=== PATIENT | female | born 1960 | race Caucasian/White ===

== ENCOUNTER 2016-07-17 06:07 | Inpatient (IN) | payer BC ==
[2016-07-09 16:54] VITALS: BMI 26.5
[2016-07-17] MEDS ORDERED: THROMBIN (BOVINE) 5,000 UNIT VIAL TP ONE ×2 (07:14→11:41)
[2016-07-17] MEDS ORDERED: GELATIN, ABSORBABLE 100 EACH SPONGE TP ONE ×2 (07:14→11:41)
[2016-07-17] MEDS ORDERED: DESFLURANE GAS 240 ML BOTTLE IH ONE (07:57)
[2016-07-17] MEDS ORDERED: ePHEDrine SULFATE 50 MG/1 ML AMPULE ONE (08:00)
[2016-07-17] MEDS ORDERED: SUCCINYLCHOLINE CHLORIDE 200 MG/10 ML VIAL ONE (08:01)
[2016-07-17] MEDS ORDERED: MIDAZOLAM HCL 2 MG/2 ML SINGLE DOSE VIAL ONE (08:01)
[2016-07-17] MEDS ORDERED: PROPOFOL 20 ML ONE ×9 (08:01→12:02)
[2016-07-17] MEDS ORDERED: ROCURONIUM BROMIDE 50 MG/5 ML VIAL ONE ×2 (08:01)
[2016-07-17] MEDS ORDERED: HYDROmorphone HCL/PF 1 MG/ML VIAL (FOR PYXIS CHARGING ONLY) ONE ×2 (10:23→12:37)
[2016-07-17] MEDS ORDERED: VANCOMYCIN 1,000 MG VIAL (RESTRICTED TO ID ONLY) ONE (12:57)
[2016-07-17] MEDS ORDERED: BACITRACIN 30 GM TUBE TOPICAL OINTMENT ONE (13:08)
[2016-07-17] MEDS ORDERED: HYDROmorphone *PCA* 10MG/50ML DISP.SYRIN PCA ONE ×3 (13:12→15:10)
[2016-07-17] MEDS ORDERED: DEXAMETHASONE SOD PHOSPHATE 4 MG/1 ML VIAL IVPUSH PRN (14:14)
[2016-07-17] MEDS ORDERED: ONDANSETRON 4 MG/2 ML VIAL IVPUSH PRN ×2 (14:48)
[2016-07-17] MEDS ORDERED: PROMETHAZINE HCL 25 MG/1 ML VIAL IVPB PRN (14:49)
[2016-07-17] MEDS ORDERED: PROMETHAZINE HCL 25 MG/1 ML VIAL IVPUSH PRN (14:49)
[2016-07-17] MEDS: SODIUM CHLORIDE 0.45% 1,000 ML IV SCH (15:41)
[2016-07-17] MEDS: LACTATED RINGERS SOLUTION 1,000 ML IV SCH (15:42)
[2016-07-17] MEDS: HYDROmorphone *PCA* 10MG/50ML DISP.SYRIN PCA SCH (15:42)
[2016-07-17] MEDS: GABAPENTIN 100 MG CAPSULE (FP) PO SCH ×2 (16:37→21:21)
[2016-07-17] MEDS: CEFAZOLIN 1 GM/D5W 50 ML IVPB SCH (18:11)
[2016-07-17] MEDS: ATORVASTATIN CA 20 MG TABLET (FP) PO SCH (21:20)
[2016-07-17] MEDS: DOCUSATE SODIUM 100 MG CAPSULE (FP) PO SCH (21:20)
[2016-07-17] MEDS: DULoxetine HCL 30 MG CAPSULE.DR (FP) PO SCH (21:20)
[2016-07-17] MEDS ORDERED: NIACIN 1000 MG PO SCH (22:00)
[2016-07-17] MEDS ORDERED: PATIENT'S OWN MEDICATION (NON-FORMULARY) (Tizanidine Hcl [Tizanidine Hcl] 4 MG) PO SCH (22:00)
[2016-07-17] MEDS ORDERED: PATIENT'S OWN MEDICATION (NON-FORMULARY) (Simvastatin 40 MG) PO SCH (22:00)
[2016-07-17] MEDS ORDERED: PT OWN MED DRAWER 7, Y5N ONE (22:47)
[2016-07-18] MEDS: CEFAZOLIN 1 GM/D5W 50 ML IVPB SCH (01:41)
[2016-07-18] MEDS ORDERED: PT OWN MED DRAWER 7, Y5N ONE ×3 (05:55→21:44)
[2016-07-18] MEDS: GABAPENTIN 100 MG CAPSULE (FP) PO SCH ×3 (06:01→21:45)
[2016-07-18] MEDS: MULTIVITAMINS (DAILY MVI) TABLET (FP) PO SCH (09:11)
[2016-07-18] MEDS: DOCUSATE SODIUM 100 MG CAPSULE (FP) PO SCH ×2 (09:11→21:39)
--- NOTE | 2016-07-18 11:18 | PN ---
Progress Note (short form) - Note Progress Note: states left leg pain much better, c/o back pain ambulated 200ft with PT Afeb dressing clean nvid motor 5/ POD#1 -OOB/PT -continue IV TILE SHADER overnight -d/c tomorrow -wound care discussed
[2016-07-18] MEDS: HYDROmorphone *PCA* 10MG/50ML DISP.SYRIN PCA SCH (13:29)
[2016-07-18] MEDS: SODIUM CHLORIDE 0.45% 1,000 ML IV SCH (13:29)
[2016-07-18] MEDS: LACTATED RINGERS SOLUTION 1,000 ML IV SCH (13:31)
[2016-07-18] MEDS: ATORVASTATIN CA 20 MG TABLET (FP) PO SCH (21:39)
[2016-07-18] MEDS: DULoxetine HCL 30 MG CAPSULE.DR (FP) PO SCH (21:39)
[2016-07-19] MEDS ORDERED: PT OWN MED DRAWER 7, Y5N ONE ×2 (05:35→14:53)
[2016-07-19] MEDS: GABAPENTIN 100 MG CAPSULE (FP) PO SCH ×2 (06:04→14:56)
--- NOTE | 2016-07-19 08:43 | OP ---
DATE OF OPERATION: 07/17/2016 PREOPERATIVE DIAGNOSIS: 1. Chronic left lower extremity lumbar radiculopathy. 2. Lumbar spinal stenosis. 3. Degenerative spondylolisthesis. 4. Degenerative disc disease, lumbar spine. POSTOPERATIVE DIAGNOSIS: 1. Chronic left lower extremity lumbar radiculopathy. 2. Lumbar spinal stenosis. 3. Degenerative spondylolisthesis. 4. Degenerative disc disease, lumbar spine. PROEDURES PERFORMED: 1. Posterior lumbar arthrodesis at two levels extending from L4 to S1. 2. Transforaminal lumbar interbody fusion at L4-L5. 3. Application of posterior segmental spine instrumentation at two levels extending from L4 to S1. 4. Insertion of lumbar interbody cage. 5. Local autograft with augmentation with Formagraft. SURGEON: Dionicio Calderon MD ELECTRICAL DESIGNER DRAFTER: ROSSANA Ramos LIST OF IMPLANTS: b-[employer] MAS PLIF screws x6, measuring 5.5 x 30 mm, two 45-mm rods, six set caps, one MAS PLIF PEEK Cage, 9 mm in height. ANESTHESIA: General. INDICATIONS FOR THE PROCEDURE: Patient is a 56-year-old female with a severe and persistent lumbosacral pain and radiating pain down the left lower extremity. This has been unrelenting and present for greater than 6 months. She has been treated with physical therapy, multiple epidural steroid injections, and has been taking high doses of narcotic pain medication for several months without any significant resolution in her symptoms. Preoperative MRI showed significant degenerative spondylolisthesis, spinal stenosis, foraminal narrowing, and instability in the spine. She is indicated for operative fixation. Risks, benefits, and alternatives of the surgery were discussed in detail with the patient. Informed consent was obtained. DESCRIPTION OF PROCEDURE: The patient was brought into the operating room via stretcher, and general endotracheal anesthesia was administered by the anesthesiologist. The patient had a Curry catheter inserted, and both lower extremities were placed with needles for intraoperative monitoring using the [employer] NeuroVision System. The patient was then flipped into the prone position onto padded Antonio frame, and all bony prominences were padded. Fluoroscopic C-arm was placed to allow for intraoperative lateral fluoroscopic radiographs. Prophylactic IV antibiotics were administered, and a time-out was performed. The back was then prepped and draped in the usual sterile fashion. Under fluoroscopic guidance, a localizing fluoroscopic radiograph was taken to measure the incision, and appropriate incision was made at the midline. Dissection was carried down to the level of the fascia. The fascia was then split with electrocautery exposing the intended levels. A deep retractor was then placed. The spine was instrumented as follows: A bur was used to start the pilot boat operator hole for insertion of the screw followed by 4.5-mm drill. A 5.5-mm tap was then passed, and the ortiz of the pilot boat operator hole were then checked for integrity. During the passage of the drill, an active monitoring or EMG potential was made using the [employer] System. The holes were placed under fluoroscopic guidance. Of note, there was noted to be severe degenerative spondylosis of the L4-L5 facets bilaterally and mild spondylosis of the L3-L4 facets on approach. There was no significant spondylosis noted clinically or instability of the L5-S1 level. In this fashion, three 30 mm x 5.5 mm screws were placed across the right side of the spine spanning the L4, L5 , and S1 levels. All the screws stimulated greater than 15 mA. A screw was then initially placed on the left side at L4 in the same fashion and stimulated greater than 20 mA. At this point, a laminectomy of the L4 lamina was then performed, and there was noted to be severe spinal stenosis from a combination of ligamentum hypertrophy as well as epidural lipomatosis. A subtotal facetectomy of the left L4-L5 facet was then performed showing a significant narrowing of the foramen and pressure over the traversing L5 root. There was noted to be a paracentral disc herniation, moderate in size, as well. An annulotomy was then performed, and a subtotal discectomy was performed. The wounds were then copiously irrigated. The end-plates were then prepared for arthrodesis, and the sizing implants were then put in. A 9-mm PEEK cage was then inserted, which was packed with morselized local autograft. The disc space was also packed with morselized local autograft and Formagraft. Reduction of the spondylolisthesis and with mormon of height was noted. Only a partial superior laminectomy of the L5 lamina was then performed, which showed no significant spinal stenosis distally. At this point, I decided to maintain the bulk of the L5 lamina for stability, and facet joints were burred for arthrodesis. A pilot boat operator hole was then placed for the placement L4 and L5 screws on the left side, and two more 30 mm x 5.5 mm screws were placed. AP and lateral fluoroscopic radiographs were then taken showing same position of the screws. Screw heads were then engaged, and 45-mm rods were placed and secured with screw caps. Excellent hemostasis was achieved. The lateral gutters and facet joints were then packed with local autograft, which was morselized along with Formagraft. Excellent hemostasis was achieved. The deep fascia was closed with No. 1 Vicryl suture. The deep dermal tissue approximated with 2-0 Vicryl suture. There was 1 g of vancomycin powder placed on the subcutaneous tissues for infection prophylaxis. The skin was closed with a running 2-0 nylon suture. Mal Rivas was necessary throughout the case for proper assistance in retraction of the neural elements and instrumentation of the spine. This could not have been done without a skilled assistant professor of biochemistry. Annamaria [id number] MTDD
[2016-07-19] MEDS: MULTIVITAMINS (DAILY MVI) TABLET (FP) PO SCH (09:19)
[2016-07-19] MEDS: DOCUSATE SODIUM 100 MG CAPSULE (FP) PO SCH (09:19)
--- NOTE | 2016-07-19 11:57 | PN ---
Progress Note (short form) - Note Progress Note: 56 F POD2 s/p lumbar fusion under GA-ETT with dilaudid IV STEAM FRAME OPERATOR for post operative pain control. Pt states her pain is moderately controlled with dilaudid IV STEAM FRAME OPERATOR, and has been using it frequently. Will defer to pain management for oral pain medication after STEAM FRAME OPERATOR is d/c'd. Patient has erythematous jarrell on her face in the areas where the tape securing her endotracheal tube was. Recommend bacitracin ointment to these areas 2-3 times daily until they are completely healed. AVSS, no anesthetic complications reported.
--- NOTE | 2016-07-19 13:46 | PN ---
Progress Note (short form) - Note Progress Note: S: Patient states she had some increased left buttocks pain last night into this morning. Left leg pain has improved. Having persistent left sided low back pain. Was able to ambulate with PT. O: NAD. Afebrile. VSS. Dressings C/D/I. Compartments soft, non-tender to calves bilaterally. Neg Deepthi's sign b/l. NVID. EHL, FHL intact 09/28. A/P: 56 y/o female POD #2 s/p 2 level lumbar laminectomy with fusion -OOB/PT -D/C home -Pain medication sent to pharmacy -Wound care reviewed with patient and extra dressings given -Follow up with Dr. Calderon next week
[2016-07-19 14:18] VITALS: BP 134/75; PULSE 77; TEMP 99.3
[2016-07-19] MEDS: LACTATED RINGERS SOLUTION 1,000 ML IV SCH (14:57)
[2016-07-19] MEDS: HYDROmorphone *PCA* 10MG/50ML DISP.SYRIN PCA SCH (14:57)
[2016-07-19] MEDS: SODIUM CHLORIDE 0.45% 1,000 ML IV SCH (14:57)
[2016-07-19] MEDS ORDERED: BACITRACIN/POLYMYXIN B SULFATE 15 GM TUBE TP PRN (14:59)
[2016-07-19] MEDS ORDERED: BACITRACIN 30 GM TUBE TOPICAL OINTMENT TP PRN (15:03)
[2016-07-19] MEDS ORDERED: BACITRACIN 30 GM TUBE TOPICAL OINTMENT TP SCH (22:00)
== END 2016-07-19 16:10 | disposition home or self-care (01) | DRG 460 ==
LOC: FM/S 06:07
PROVIDERS: ADMIT Orthopaedic Surgery Orthopaedic Surgery of the Spine; ATTEND Orthopaedic Surgery Orthopaedic Surgery of the Spine
PROC: 4A11X4G Monitoring of Peripheral Nervous Electrical Activity, Intraoperative, External Approach (ICD-10-PCS; 2016-07-17)
PROC: 0SG30A1 (ICD-10-PCS; principal; 2016-07-17 09:05)
PROC: 0SB20ZZ Excision of Lumbar Vertebral Disc, Open Approach (ICD-10-PCS; 2016-07-17 09:05)
DX: M51.16 Intervertebral disc disorders with radiculopathy, lumbar region (principal); M48.06 Spinal stenosis, lumbar region; E78.00 Pure hypercholesterolemia, unspecified; Z96.649 Presence of unspecified artificial hip joint
CPT/HCPCS: 72100-TC; 94760; 97116-GP; 97161-GP